=== PATIENT | female | born 1980 | race Caucasian/White ===

== ENCOUNTER 2020-08-08 08:35 | Emergency (ER) | payer SELFPAY ==
[~2020-08-08] VITALS: Ht 170.2 cm; Wt 77.7 kg
[2020-08-08 08:40] VITALS: BP 131/101
--- NOTE | 2020-08-08 08:44 | NUR ---
BOX OFFICE MANAGER: [facility] CUP GIVEN
[2020-08-08 09:16] LABS: BASOPHILS # (AUTO) 0.02 x10^3/uL (0-0.1); BASOPHILS % (AUTO) 0 % (0-1); EOSINOPHILS % (AUTO) 3 % (1-7); LYMPHOCYTES # (AUTO) 1.57 x10^3/uL (1-3.4); LYMPHOCYTES % (AUTO) 26 % (22-44); MD NO; MEAN CORPUSCULAR HEMOGLOBIN 33.5 pg (27.0-34.8); MEAN CORPUSCULAR VOLUME 98.4 fL (80-100); MEAN PLATELET VOLUME 8.6 fL (7.4-10.4); MONOCYTES # (AUTO) 0.38 x10^3/uL (0.2-0.8); MONOCYTES % (AUTO) 7 % (2-9); NEUTROPHILS # (AUTO) 3.76 x10^3/uL (1.8-6.8); NEUTROPHILS % (AUTO) 64 % (42-75); PLATELET COUNT 217 x10^3/uL (130-400); RED BLOOD COUNT 4.11 x10^6/uL (3.82-5.3); RED CELL DISTRIBUTION WIDTH 11.9 % (9.6-15.2)
--- NOTE | 2020-08-08 09:19 | NUR ---
WINCHMAN/CRANE OPERATOR: PT TO ROOM FROM LOBBY, GAIT SLOW AND STEADY.
[2020-08-08 09:24] LABS: ALANINE AMINOTRANSFERASE 19 U/L (12-78); ALBUMIN 4.1 g/dL (3.4-5.0); ANION GAP 5 mmol/L (5-15); CALCIUM 8.9 mg/dL (8.5-10.1); CHLORIDE 108 mmol/L (98-107); CREATININE 0.89 mg/dL (0.55-1.02)
[2020-08-08 09:26] LABS: ALKALINE PHOSPHATASE 38 U/L (45-117); TOTAL PROTEIN 7.6 g/dL (6.4-8.2)
--- NOTE | 2020-08-08 09:30 | NUR ---
pt at [facility] as
--- NOTE | 2020-08-08 10:13 | NUR ---
PT REPORTS PELVIC PAIN X2 DAYS AFTER SEXUAL INTERCOURSE, WITH PAINFUL URINATION, N/V, "I THINK THERE'S BLOOD, TOO", DENIES DISCHARGE
[2020-08-08] MEDS ORDERED: OXYcodone/APAP 10/325MG TABLET ONE (10:29)
[2020-08-08] MEDS ORDERED: OXYcodone/APAP 10/325MG TABLET PO ONE (10:30)
[2020-08-08] MEDS ORDERED: KETOROLAC 30 MG/1 ML IM ONE (10:30)
[2020-08-08 11:00] LABS: MICROSCOPIC INDICATED
--- NOTE | 2020-08-08 11:28 | NUR ---
discharge instructions reviewed.
== END 2020-08-08 11:50 | disposition home or self-care (01) ==
LOC: ED 10:10
DX: N83.291 Other ovarian cyst, right side (principal); R10.2 Pelvic and perineal pain; R11.2 Nausea with vomiting, unspecified; R30.0 Dysuria
CPT/HCPCS: 36415; 76830; 80053; 81001; 85025; 87086; 99284